=== PATIENT | female | born 1985 | race Caucasian/White ===

== ENCOUNTER 2021-04-08 08:41 | Emergency (ER) | payer MEDICAID ==
[~2021-04-08] VITALS: Ht 175.3 cm; Wt 68.0 kg
[2021-04-08 09:53] VITALS: BP 132/80
== END 2021-04-08 11:58 | disposition home or self-care (01) ==
LOC: ER 08:41
DX: S90.32XA Contusion of left foot, initial encounter (principal); M79.672 Pain in left foot; R20.0 Anesthesia of skin
CPT/HCPCS: 73630; 99283